=== PATIENT | male | born 1985 | race Two or more races ===

== ENCOUNTER 2017-09-12 21:13 | Emergency (ER) | payer SELFPAY ==
[~2017-09-12] VITALS: Ht 175.3 cm; Wt 81.6 kg
--- NOTE | 2017-09-12 21:32 | NUR ---
LAB AT BEDSIDE
--- NOTE | 2017-09-12 21:39 | NUR ---
[facility] L[facility]D 59 C/C ALOC UNRESPONSIVE. PER EMS "PT PASSED OUT IN UBER, EMS WAS CALLED. 4MG NARCAN IV ADMIN BY EMS WITH LITTLE RESPONSE, 4 MG ZOFRAN ADMIN DOCK OPERATOR." PT AA/O X0 WITH PAIN STIMULATION. NO TRAUMA NOTED FORM HEAD TO TOE. 02 SAT 94% ROOM AIR. 02 2LPM VIA NC APPLIED. AWAITING MD ORDERS.
[2017-09-12 21:45] LABS: BASOPHILS % (AUTO) 0.4 % (0.0-2.0); EOSINOPHILS % (AUTO) 0.1 % (0.0-6.0); HEMATOCRIT 42 % (39-51); HEMOGLOBIN 14.6 g/dL (13.5-17.5); LYMPHOCYTES # (AUTO) 1.6 /CMM (0.8-4.8); LYMPHOCYTES % (AUTO) 17.1 % (20.0-44.0); MEAN CORPUSCULAR HEMOGLOBIN 30 PG (26.0-33.0); MEAN CORPUSCULAR HGB CONC 35 g/dl (31.0-36.0); MEAN CORPUSCULAR VOLUME 85 fL (80-96); MONOCYTES # (AUTO) 1.1 /CMM (0.1-1.30); MONOCYTES % (AUTO) 12.4 % (2.0-12.0); NEUTROPHILS # (AUTO) 6.4 /CMM (1.8-8.9); PLATELET COUNT (AUTO) 314 /CMM (150-450); RDW COEFFICIENT OF VARIATION 11.8 (11.5-15.0); RED BLOOD CELL COUNT(AUTO) 4.93 MIL/uL (4.5-6.0); WHITE BLOOD COUNT (AUTO) 9.1 K/uL (4.3-11.0)
[2017-09-12 21:56] LABS: CALCIUM, SERUM 8.3 mg/dL (8.5-10.1); CARBON DIOXIDE 25 mmol/L (21-32); CHLORIDE 107 mmol/L (98-107); CREATININE 0.8 mg/dL (0.6-1.3); GLUCOSE 115 mg/dL (74-106); POTASSIUM 4.5 mmol/L (3.5-5.1); SODIUM SERUM 139 mmol/L (136-145); UREA NITROGEN, BLOOD 15 mg/dL (7-18)
[2017-09-12] MEDS ORDERED: methylPREDNISolone SOD SUCC 125 MG/2ML VIAL IV ONE (22:00)
[2017-09-12] MEDS ORDERED: ALBUTEROL FS 2.5 MG/3 ML VIAL.NEB CONTNEB ONE (22:00)
[2017-09-12] MEDS ORDERED: NALOXONE HCL 2 MG in IV D5W 245 ML IV PRN (22:00)
[2017-09-12] MEDS ORDERED: IPRATROPIUM NEB FS 0.5 MG/2.5 ML AMPUL.NEB NEB ONE (22:00)
[2017-09-12 22:03] LABS: ALANINE AMINOTRANSFERASE 26 U/L (12-78); ALBUMIN 3.4 g/dL (3.4-5.0); ALKALINE PHOSPHATASE 99 U/L (46-116); ASPARTATE AMINOTRANSFERASE 17 U/L (15-37); BILIRUBIN,DIRECT 0.1 mg/dL (0.0-0.2); BILIRUBIN,TOTAL 0.3 mg/dL (0.2-1.0); TOTAL PROTEIN, SERUM 8.7 g/dL (6.4-8.2)
[2017-09-12 22:05] LABS: SALICYLATE 1.5 mg/dL (2.8-20.0)
[2017-09-12 22:06] LABS: ACETAMINOPHEN 0 ug/ml (10-30); ALCOHOL, BLOOD < 3 mg/dL (0-0)
[2017-09-12] MEDS ORDERED: ALBUTEROL FS 2.5 MG/3 ML VIAL.NEB ONE ×2 (22:08→22:17)
[2017-09-12] MEDS ORDERED: NALOXONE PREFILLED SYRINGE 2 MG/2 ML SYRINGE ONE (22:08)
[2017-09-12] MEDS ORDERED: IPRATROPIUM NEB FS 0.5 MG/2.5 ML AMPUL.NEB ONE (22:08)
[2017-09-12] MEDS ORDERED: methylPREDNISolone SOD SUCC 125 MG/2ML VIAL ONE (22:09)
[2017-09-12 22:26] LABS: APPEARANCE,URINE CLEAR (CLEAR); BILIRUBIN,URINE NEGATIVE (NEGATIVE); BLOOD, URINE NEGATIVE Ery/uL (NEGATIVE); COLOR,URINE YELLOW (YELLOW); KETONES,URINE TRACE (NEGATIVE); LEUKOCYTE ESTERASE ,URINE NEGATIVE (NEGATIVE); NITRITE, URINE NEGATIVE (NEGATIVE); PROTEIN,URINE TRACE mg/dl (NEGATIVE); UGLUCOSE NEGATIVE (NEGATIVE)
[2017-09-12 22:37] LABS: BACTERIA,URINE Rare /HPF (None Seen); RBC,URINE 0-2 /HPF (0-2); SQUAMOUS EPITHELIAL CELL,UR Rare /HPF (None Seen); WBC,URINE 0-2 /HPF (0-3)
[2017-09-12 22:38] LABS: MUCUS,URINE Few /LPF (None Seen)
--- NOTE | 2017-09-12 22:52 | NUR ---
PT BROUGHT TO CT
[2017-09-12] MEDS ORDERED: HALOPERIDOL LACTATE INJ 5 MG/ML VIAL ONE (22:58)
[2017-09-12] MEDS ORDERED: HALOPERIDOL LACTATE INJ 5 MG/ML VIAL IV ONE (23:00)
--- NOTE | 2017-09-12 23:11 | NUR ---
PT BROUGHT BACK FROM CT. UNABLE TO COMPLETE CT DUE TO PT BEING UNCOOPERATIVE, CONFUSED, AND COMBATIVE.
--- NOTE | 2017-09-12 23:24 | NUR ---
PT COMBATIVE AND UNCOOPERATIVE. ADMINISTERED 5MG HALDOL ORDERED BY .
[2017-09-12] MEDS ORDERED: HALOPERIDOL LACTATE INJ 5 MG/ML VIAL IM ONE (23:30)
[2017-09-12 23:37] LABS: ABG BASE EXCESS -3.4 mmol/L; ABG OXYGEN SATURATION 94.5 % (92.0-98.5); ABG PCO2 42.3 mmHg (35.0-45.0); ABG PH 7.339 (7.350-7.450); ABG PO2 76.5 mmHg (75.0-100.0); AaDO2 22.6 mmHg; COHb 0.6 % (0.5-1.5); MetHb 0.3 % (0.0-1.5); O2Hb 93.6 % (94.0-97.0); SITE, ABG Left Radial; VENT MODE, BG RA
--- NOTE | 2017-09-13 00:01 | NUR ---
PT TRANSPORTED TO RADIOLOGY FOR CT HEAD.
--- NOTE | 2017-09-13 00:17 | NUR ---
PT BACK FROM RADIOLOGY. PENDING CT RESULT.
--- NOTE | 2017-09-13 02:09 | NUR ---
Patient is resting comfortably in bed with eyes closed. VSS. SAFETY MEASURES IN PLACE. CALL LIGHT WITHIN REACH. WILL CONTINUE TO MONITOR. PT REMAINS ON O2 2LPM VIA NC.
--- NOTE | 2017-09-13 04:53 | NUR ---
PT CONTINUES TO REST COMFORTABLY. NAD. VSS. WILL CONTINUE TO MONITOR. SAFETY MEASURES IN PLACE.
--- NOTE | 2017-09-13 06:59 | NUR ---
PT CONTINUES TO SLEEP. ATTEMPTED TO AROUSE WITH PAIN STIMULATION. NO RESPONSE. VSS. NAD. SAFETY MEASURES IN PLACE. CALL LIGHT WITHIN REACH.
--- NOTE | 2017-09-13 07:16 | NUR ---
ENDORSED TO MERY LEHMANEL. PT STABLE CONDITION. VSS. NAD.
[2017-09-13 12:35] VITALS: BP 124/78
--- NOTE | 2017-09-13 12:54 | NUR ---
SHIRT AND PANTS PROVIDED,VERBALIZED UNDERSTANDING OF [facility], COPIES OF ALL LABS AND IMAGING RESULTS GIVEN, ASSISTED BY SECURITY WITH ALL BELONGINGS TO THE WAITING, AMBULATORY,STEADY GAIT.
--- NOTE | 2017-09-13 12:58 | NUR ---
NO PIV NOTED
== END 2017-09-13 13:00 | disposition home or self-care (01) ==
LOC: EDBD 21:17 → ER 21:17
DX: R41.82 Altered mental status, unspecified (principal); F15.159 Other stimulant abuse with stimulant-induced psychotic disorder, unspecified
CPT/HCPCS: 36415; 36600 ×2; 51702; 70450; 71045; 72125; 80048; 80076; 80305; 80329; 81001; 82803; 85025; 93005; 94640; 96374 ×2; 96375; 99291; A4606; G0480 ×2; J1630; J2310; J2930; J7030; J7060; Z7610; 81000-TC

== ENCOUNTER 2017-10-17 06:49 | Emergency (ER) | payer MEDICAID ==
[~2017-10-17] VITALS: Ht 185.4 cm; Wt 81.6 kg
--- NOTE | 2017-10-17 06:50 | NUR ---
31 yo male BIB self. patient is alert and oriented, states he woke up short of breath. patient ambulated to er bed, patient is noted to be tachypnic. patient placed on cardic monitor. patient is noted to by tachycardic rate 124, SPO2 is 94 on room air, resp rate 40. pt skin warm and dry, resp even and unlabored. will continue to monitor, awaiting orders from provider
--- NOTE | 2017-10-17 06:55 | NUR ---
MD Galan is at bed side for eval
--- NOTE | 2017-10-17 06:56 | NUR ---
RT CALLED FOR BREATHING TREATMENT
[2017-10-17] MEDS ORDERED: ALBUTEROL FS 2.5 MG/3 ML VIAL.NEB NEB ONE ×3 (07:00→08:30)
[2017-10-17] MEDS ORDERED: predniSONE 20 MG TABLET PO ONE (07:00)
[2017-10-17] MEDS ORDERED: IPRATROPIUM NEB FS 0.5 MG/2.5 ML AMPUL.NEB NEB ONE ×3 (07:00→08:30)
--- NOTE | 2017-10-17 07:01 | NUR ---
RT at bed side for breathibng treatment
[2017-10-17] MEDS ORDERED: IPRATROPIUM NEB FS 0.5 MG/2.5 ML AMPUL.NEB ONE ×3 (07:03→08:58)
[2017-10-17] MEDS ORDERED: ALBUTEROL FS 2.5 MG/3 ML VIAL.NEB ONE ×3 (07:03→08:58)
[2017-10-17] MEDS ORDERED: predniSONE 10 MG TABLET ONE (07:04)
[2017-10-17] MEDS ORDERED: predniSONE 20 MG TABLET ONE (07:04)
--- NOTE | 2017-10-17 08:40 | NUR ---
DR HERRON AT TALKING TO FAMILY AND RE-EVAL.
--- NOTE | 2017-10-17 08:52 | NUR ---
CALLED RT FOR BREATHING TREATMENT.
[2017-10-17] MEDS ORDERED: clonazePAM 1 MG TABLET PO ONE (09:30)
[2017-10-17] MEDS ORDERED: clonazePAM 1 MG TABLET ONE (09:34)
--- NOTE | 2017-10-17 09:50 | NUR ---
CYNTHIA, ELECTROCARDIOGRAPH TECHNICIAN AT BS.
--- NOTE | 2017-10-17 10:20 | NUR ---
Patient discharged to home in stable condition. Written and verbal after care instructions given. Patient verbalizes understanding of instruction.
[2017-10-17 10:23] VITALS: BP 135/75
--- NOTE | 2017-10-17 10:36 | NUR ---
Dr Galan requested social work consult for this 31 yo male BIB self (i.e. for shortness of breath) at the request of his brother, Van Wynn; for substance abuse referrals. Patient is alert and oriented, when asked how he was doing, pt replied, "I'm good." YVROSE met with pts brother, outside the room to address his concerns about pts substance use and lack of support system. SW listened attentively as pts brother discussed being pts only family who could help him. YVROSE provided pts brother a list of substance abuse referrals in the [facility] per his request. SW offered to discuss treatment programs with pt however pts brother reported that pt was not interested in any. SW also provided pts brother with information about HIV/AIDS programs/treatment (a list was provided); including information about the [employer] [facility] at his request. SW encouraged pts brother to contact treatment programs for information in order to help his brother. Pts brother was thankful and agreed to follow up. YVROSE made self available in th event pt/family needed additional resources/referrals.
== END 2017-10-17 10:23 | disposition home or self-care (01) ==
LOC: ER 06:50
DX: J45.901 Unspecified asthma with (acute) exacerbation (principal); Z21 Asymptomatic human immunodeficiency virus [HIV] infection status; F19.10 Other psychoactive substance abuse, uncomplicated; F41.9 Anxiety disorder, unspecified; F32.9 Major depressive disorder, single episode, unspecified; G47.30 Sleep apnea, unspecified
CPT/HCPCS: 71045; 94640 ×4; 99285; A4606; J7512 ×2; Z7610